=== PATIENT | female | born 1990 | race Caucasian/White ===

== ENCOUNTER 2022-02-21 07:57 | Emergency (ER) | payer OTHER ==
[~2022-02-21] VITALS: Ht 154.9 cm; Wt 59.0 kg
[2022-02-21 08:16] VITALS: BP 141/95
[2022-02-21] MEDS ORDERED: DOXY100C3 PO (09:52)
--- NOTE | 2022-02-21 09:52 | PHYS DOC ---
Past Medical History Past Surgical History: Other Additional Past Surgical Histo: skin General Adult EDM: Chief Complaint: INSECT BITE HPI: HPI: Patient is a 31-year-old female who presents today with a insect bite back of her left leg. Patient states that she noticed the bite yesterday morning, and progressively over the last 24 hours it is gotten more painful, she does not recall any insects being around. Patient states that she has been placing lidocaine cream on the bite but it has not gotten in better. Patient denies chest pain, shortness of breath, fever or chills. Review of Systems: Review of Systems: Constitutional: Denies fever or chills. [] Eyes: Denies change in visual acuity. [] HENT: Denies nasal congestion or sore throat. [] Respiratory: Denies cough or shortness of breath. [] Cardiovascular: Denies chest pain or edema. [] GI: Denies abdominal pain, nausea, vomiting, bloody stools or diarrhea. [] : Denies dysuria. [] Musculoskeletal: Denies back pain or joint pain. [] Integument: Insect bite to left leg denies rash. [] Neurologic: Denies headache, focal weakness or sensory changes. [] Endocrine: Denies polyuria or polydipsia. [] Lymphatic: Denies swollen glands. [] Psychiatric: Denies depression or anxiety. [] Heart Score: C/O Chest Pain: No Risk Factors: Risk Factors: DM, Current or recent (<one month) smoker, HTN, HLP, family history of CAD, obesity. Risk Scores: Score 0 - 3: 2.5% MACE over next 6 weeks - Discharge Home Score 4 - 6: 20.3% MACE over next 6 weeks - Admit for Clinical Observation Score 7 - 10: 72.7% MACE over next 6 weeks - Early Invasive Strategies Allergies: Allergies: Allergies Coded Allergies Type Severity Reaction Last Updated Verified Opioids - Morphine Analogues Allergy Severe Hives 02/21/22 Yes Opioids-Meperidine and Related Allergy Severe Hives 02/21/22 Yes Opioids-Methadone and Related Allergy Severe Hives 02/21/22 Yes azithromycin Allergy Severe hives 02/21/22 Yes Physical Exam: PE: Constitutional: Well developed, well nourished, no acute distress, non-toxic appearance. [] HENT: Normocephalic, atraumatic, bilateral external ears normal, oropharynx moist, no oral exudates, nose normal. [] Eyes: PERRLA, EOMI, conjunctiva normal, no discharge. [] Neck: Normal range of motion, no tenderness, supple, no stridor. [] Cardiovascular:Heart rate regular rhythm, no murmur [] Lungs & Thorax: Bilateral breath sounds clear to auscultation [] Abdomen: Bowel sounds normal, soft, no tenderness, no masses, no pulsatile masses. [] Skin: Warm, dry, no erythema, no rash. [] Back: No tenderness, no CVA tenderness. [] Extremities: Patient has a 2 cm x 2 cm circular erythemic area to the back of the left leg near the junction of the knee, area is tender to touch, patient is able to ambulate without any difficulty, she has adequate range of motion, dorsalis pedis pulse in the left leg is 2+ cap refill and sensory is intact distal to the bite. Neurologic: Alert and oriented X 3, normal motor function, normal sensory function, no focal deficits noted. [] Psychologic: Affect normal, judgement normal, mood normal. [] Current Patient Data: Vital Signs: Vital Signs Date Time Temp Pulse Resp B/P (MAP) Pulse Ox O2 Delivery O2 Flow Rate FiO2 02/21/22 08:16 98.0 110 18 141/95 (110) 97 Room Air 98.0 EKG: EKG: [] Radiology/Procedures: Radiology/Procedures: [] Course & Med Decision Making: Course & Med Decision Making Pertinent Labs and Imaging studies reviewed. (See chart for details) Patient is alert and orientated and nontoxic at this time I will place the patie nt on an antibiotic, patient will also be given a dose of Decadron while here in the emergency department she will be instructed to take anti-inflammatory medication such as Motrin and also take antihistamine such as Benadryl or Claritin. Patient is to return here in 48 to 72 hours if her symptoms do not improve. Patient was also offered a injection of Toradol to help with the pain relief she refused at this time. Patient will also be given a list of clinics and physicians that she can establish primary care with. Nurses state at the discharge time patient at this time did not wish to take any steroids, due to having a wedding this weekend. Leticia Disclaimer: Leticia Disclaimer: This electronic medical record was generated, in whole or in part, using a voice recognition dictation system. Departure Departure Impression: Primary Impression: Insect bite Qualified Codes: S70.362A - Insect bite (nonvenomous), left thigh, initial encounter; W57.XXXA - Bitten or stung by nonvenomous insect and other nonvenomous arthropods, initial encounter Disposition: HOME / SELF CARE / HOMELESS Condition: STABLE Referrals: NO PCP (PCP) Patient Instructions: Insect Bite Additional Instructions: Doxycycline take 1 tablet twice daily for 10 full days Use [id number] Benadryl or other antihistamine products to help with inflammation I will process Use Tylenol and/or ibuprofen as needed for pain Ice to the affected area 20 minutes on 3-4 times daily to help with localized pain relief [id number] hydrocortisone cream to help with swelling as well Follow-up with your primary care physician or with one of the listed clinics below for further evaluation and management of your medical conditions Return to the emergency department in the next 48 to 72 hours if your symptoms have not improved. Scripts Fluconazole (DIFLUCAN) 150 Mg Tablet 1 TAB PO ONCE, #1 TAB 1 Refill Prov: BILLIE FLORENTINO [employer] 02/21/22 Doxycycline Hyclate (DOXYCYCLINE HYCLATE) 100 Mg Capsule 1 CAP PO BID, #20 CAP Prov: BILLIE FLORENTINO [employer] AD[employer] 02/21/22 BILLIE FLORENTINO APRN February 21, 2022 09:52
[2022-02-21] MEDS ORDERED: DEXAMETHASONE 4 MG TABLET PO ONE (10:00)
[2022-02-21] MEDS ORDERED: FLUC150T PO (10:07)
== END 2022-02-21 10:28 | disposition home or self-care (01) ==
LOC: ER 07:57
DX: S70.362A Insect bite (nonvenomous), left thigh, initial encounter (principal); Z88.1 Allergy status to other antibiotic agents; Z88.8 Allergy status to other drugs, medicaments and biological substances; W57.XXXA Bitten or stung by nonvenomous insect and other nonvenomous arthropods, initial encounter; Y93.89 Activity, other specified; Y92.89 Other specified places as the place of occurrence of the external cause; Y99.8 Other external cause status
CPT/HCPCS: 99283